=== PATIENT | female | born 1985 | race American Indian/Alaskan Native ===

== ENCOUNTER 2017-03-19 01:48 | Emergency (ER) | payer SELFPAY ==
[2017-03-19 02:55] VITALS: BP 110/74
[2017-03-19 03:23] LABS: Basophils % (Auto) 0.8 % (0.0-1.8); Eosinophils % (Auto) 4.6 % (0.0-4.3); Hematocrit 36.7 % (30.3-42.9); Hemoglobin 11.6 gm/dl (10.1-14.3); Mean Corpuscular HGB Conc 32 % (30-34); Mean Corpuscular Volume 71 fl (79-97); Platelet Count 278 K/mm3 (140-440); Red Blood Count 5.15 M/mm3 (3.65-5.03); Red Cell Distribution Width 14.2 % (13.2-15.2); White Blood Count 6.2 K/mm3 (4.5-11.0)
[2017-03-19 03:33] LABS: Mean Corpuscular Hemoglobin 23 pg (28-32)
[2017-03-19 03:40] LABS: Alanine Aminotransferase 21 units/L (7-56); Albumin 3.9 g/dL (3.9-5); Albumin/Globulin Ratio 1.3 %; Alkaline Phosphatase 66 units/L (35-129); Anion Gap 20 mmol/L; BUN/Creatinine Ratio 18.57; Blood Urea Nitrogen 13 mg/dL (7-17); Calcium 9.5 mg/dL (8.4-10.2); Carbon Dioxide 24 mmol/L (22-30); Chloride 102.1 mmol/L (98-107); Glucose 117 mg/dL (65-100); Lipase 36 units/L (13-60); Potassium 3.5 mmol/L (3.6-5.0); Sodium 143 mmol/L (137-145)
--- NOTE | 2017-03-19 04:47 | Emergency Department Report ---
Upper Respiratory HPI - HPI Chief Complaint: Upper Respiratory Infection Stated Complaint: STACEY/COUGH Time Seen by Provider: 03/19/17 03:51 URI Symptoms: Rhinorrhea: Yes, Sore Throat: Yes, Ear Pain: Yes, Cough: Yes, Shortness of Breath: Yes, Sick Contacts: No, Unable to Take Fluids: No, Urine Output Abnormal: No, Listless Behavior: No - Home Meds and Allergies Home Medications: Home Medications Medication Instructions Recorded Confirmed Last Taken Albuterol [Proventil] 2 mg PO TID PRN 01/09/14 01/09/14 Unknown Budesoni/Formotero 160-4.5(Nf) 2 puff IH BID 01/09/14 01/09/14 Unknown [Symbicort 160-4.5] Butalb/Acetamin/Caff 50-325-40 2 tab PO Q8H PRN 01/09/14 01/09/14 Unknown [Fioricet] Folic Acid 0.4 mg PO QDAY 01/09/14 01/09/14 Unknown Furosemide [Lasix] 40 mg PO DAILY 01/09/14 01/09/14 Unknown Norethindrone [Ortho Micronor] 0.35 mg PO DAILY 01/09/14 01/09/14 Unknown Potassium Chloride [Klor-Con 10] 10 meq PO DAILY 01/09/14 01/09/14 Unknown metFORMIN [Glucophage] 500 mg PO DAILY 01/09/14 01/09/14 Unknown Previous Rx's Medication Instructions Recorded Last Taken Type HYDROcodone/APAP 5-325 [[place] 1 - 2 each PO Q4-6H PRN #10 tablet 01/09/14 Unknown Rx 5/325 mg] ALBUTEROL Inhaler [ProAir HFA 2 puff IH QID PRN #1 inhalation 03/19/17 Unknown Rx Inhaler] Azithromycin [Zithromax Z-SAMI] 250 mg PO DAILY #6 tablet 03/19/17 Unknown Rx Ibuprofen [Motrin 800 MG tab] 800 mg PO Q8HR PRN #30 tablet 03/19/17 Unknown Rx P-Ephed HCl/Codeine/Guaifen 5 ml PO Q6HR PRN #240 ml 03/19/17 Unknown Rx [Cheratussin DAC Syrup] predniSONE [Deltasone] 40 mg PO DAILY #5 tablet 03/19/17 Unknown Rx Allergies/Adverse Reactions: Allergies Allergy/AdvReac Type Severity Reaction Status Date / Time Penicillins AdvReac Unknown Verified 01/09/14 12:31 ED Review of Systems ROS: Stated complaint: STACEY/COUGH Other details as noted in HPI Constitutional: fever. denies: diaphoresis, weakness Eyes: denies: eye pain, eye discharge, vision change ENT: ear pain, throat pain, congestion. denies: dental pain, hearing loss, epistaxis Respiratory: cough, shortness of breath, wheezing. denies: orthopnea Cardiovascular: denies: chest pain, palpitations, dyspnea on exertion, edema, syncope, paroxysmal nocturnal dyspnea Endocrine: no symptoms reported Gastrointestinal: denies: abdominal pain, nausea, diarrhea Genitourinary: denies: urgency, dysuria, discharge Skin: denies: rash, lesions Neurological: denies: headache, weakness, paresthesias Psychiatric: denies: anxiety, depression Hematological/Lymphatic: denies: easy bleeding, easy bruising ED Past Medical Hx - Past Medical History Previous Medical History?: Yes Hx Congestive Heart Failure: Yes Hx Headaches / Migraines: Yes Hx Asthma: Yes - Surgical History Past Surgical History?: Yes Additional Surgical History: Hernia Repair, 2002. , Hysteroscopy, D&C - Social History Smoking Status: Never Smoker Substance Use Type: None - Medications Home Medications: Home Medications Medication Instructions Recorded Confirmed Last Taken Type Albuterol [Proventil] 2 mg PO TID PRN 01/09/14 01/09/14 Unknown History Budesoni/Formotero 160-4.5(Nf) 2 puff IH BID 01/09/14 01/09/14 Unknown History [Symbicort 160-4.5] Butalb/Acetamin/Caff 50-325-40 2 tab PO Q8H PRN 01/09/14 01/09/14 Unknown History [Fioricet] Folic Acid 0.4 mg PO QDAY 01/09/14 01/09/14 Unknown History Furosemide [Lasix] 40 mg PO DAILY 01/09/14 01/09/14 Unknown History HYDROcodone/APAP 5-325 [[place] 1 - 2 each PO Q4-6H PRN #10 tablet 01/09/14 Unknown Rx 5/325 mg] Norethindrone [Ortho Micronor] 0.35 mg PO DAILY 04/08/14 04/08/14 Unknown History Potassium Chloride [Klor-Con 10] 10 meq PO DAILY 01/09/14 01/09/14 Unknown History metFORMIN [Glucophage] 500 mg PO DAILY 01/09/14 01/09/14 Unknown History ALBUTEROL Inhaler [ProAir HFA 2 puff IH QID PRN #1 inhalation 03/19/17 Unknown Rx Inhaler] Azithromycin [Zithromax Z-SAMI] 250 mg PO DAILY #6 tablet 03/19/17 Unknown Rx Ibuprofen [Motrin 800 MG tab] 800 mg PO Q8HR PRN #30 tablet 03/19/17 Unknown Rx P-Ephed HCl/Codeine/Guaifen 5 ml PO Q6HR PRN #240 ml 03/19/17 Unknown Rx [Cheratussin DAC Syrup] predniSONE [Deltasone] 40 mg PO DAILY #5 tablet 03/19/17 Unknown Rx ED Bronchiolitis Physical Exam - Exam General: Vital signs noted. No distress. Alert and acting appropriately. HEENT: Yes Pharyngeal Erythema, Yes Rhinorrhea, No Conjuctival Injection, No Dry Mucous Membranes Ear: Right TM Erythema, Neither TM Bulge, Neither EAC Discharge Neck: Yes Adenopathy, No Rigidity Lungs: Yes Good Air Exchange, Yes Wheezes, Yes Cough, No Clear Lung Sounds, No Stridor, No Nasal Flaring, No Retractions Heart: Yes Regular, No Murmur Abdomen: Yes Normal Bowel Sounds, No Tenderness, No Peritoneal Signs Skin: No Rash, No Eczema Neurologic: Alert and oriented, no deficits. Musculoskeletal: Unremarkable. Treatments - Treaments Treatment: Improved Albuterol ED Physical Exam - General Limitations: No Limitations General appearance: alert, in no apparent distress - Head Head exam: Present: atraumatic, normocephalic - Eye Eye exam: Present: normal appearance, PERRL, EOMI Pupils: Present: normal accommodation - ENT ENT exam: Present: mucous membranes moist, normal external ear exam - Expanded ENT Exam Expanded TM/Canal exam: Erythema: Right TM, Left TM, Loss of Landmarks: Right TM, Foreign Body: Left TM, Cerumen Impaction: Left TM, Mastoid Tenderness: Left TM, Canal Discharge: Left TM, Right TM, Canal Tenderness: Right TM Mouth exam: Present: normal external inspection, tongue normal. Absent: trismus , muffled voice Teeth exam: Absent: normal inspection Throat exam: Positive: tonsillar erythema, tonsillomegaly. Negative: tonsillar exudate, R peritonsillar mass, L peritonsillar mass - Neck Neck exam: Present: normal inspection, full ROM, lymphadenopathy. Absent: tenderness, meningismus, thyromegaly - Respiratory Respiratory exam: Present: wheezes, chest wall tenderness. Absent: respiratory distress, rales, rhonchi, stridor, accessory muscle use, decreased breath sounds , prolonged expiratory - Cardiovascular Cardiovascular Exam: Present: regular rate, normal rhythm. Absent: systolic murmur, diastolic murmur, rubs, gallop - GI/Abdominal GI/Abdominal exam: Present: soft, normal bowel sounds. Absent: tenderness, guarding, rebound, rigid, bruit - Rectal Rectal exam: Present: deferred - Extremities Exam Extremities exam: Present: normal inspection - Back Exam Back exam: Present: normal inspection - Neurological Exam Neurological exam: Present: alert, oriented X3 - Psychiatric Psychiatric exam: Present: normal affect, normal mood - Skin Skin exam: Present: warm, dry, intact, normal color. Absent: rash ED Course Vital Signs 03/19/17 02:20 Temperature 98.4 F Pulse Rate 101 H Respiratory 20 Rate Blood Pressure 110/74 [Right] O2 Sat by Pulse 100 Oximetry ED Medical Decision Making - Lab Data Result diagrams: 03/19/17 03:04 03/19/17 03:04 - EKG Data -: EKG Interpreted by Me (Attending physician) EKG shows normal: sinus rhythm Rate: normal - Radiology Data Radiology results: image reviewed no opacities no infiltrates - Medical Decision Making pt is 32 y/o aaf with hx of asthma and bronchitis who presents for acute exacerbation of same pt endorse cough productive green noc wheezing and fever , intermittent sob, pt denies smoking exam pt rec'd a/o x 3 with nad no use of accessory muscles, lungs with mild exp wheezing and diminished bases bilat , pt lungs sound improved with neb tx given in ED , CV: S1 and S2, repeat V/S HR: CXR: no infiltrate no opacities, EKG: plan: prednisone, Albuterol inhaler, Zpack, ibuprofen ,and Cheratussin pt is currently a/o x 3 ambulatory in length of fast track without increased sob , pt verbalized understanding and agreement with discharge plan. N. [place] Heart Score: 2 , hr now 79, bp:147/82 , resp 16 Critical care attestation.: If time is entered above; I have spent that time in minutes in the direct care of this critically ill patient, excluding procedure time. ED Disposition Clinical Impression: Bronchitis, Asthma Disposition: DC- TO HOME OR SELFCARE Is pt being admited?: No Does the pt Need Aspirin: No Condition: Good Instructions: Chronic Bronchitis (ED), Asthma (ED) Prescriptions: ALBUTEROL Inhaler [ProAir HFA Inhaler] 2 puff IH QID PRN #1 inhalation PRN Reason: Shortness Of Breath Azithromycin [Zithromax Z-SAMI] 250 mg PO DAILY #6 tablet Ibuprofen [Motrin 800 MG tab] 800 mg PO Q8HR PRN #30 tablet PRN Reason: Pain P-Ephed HCl/Codeine/Guaifen [Cheratussin DAC Syrup] 5 ml PO Q6HR PRN #240 ml PRN Reason: Cough predniSONE [Deltasone] 40 mg PO DAILY #5 tablet Referrals: PRIMARY CARE, [Primary Care Provider] - 3-5 Days Forms: Work/School Release Form(ED) Time of Disposition: 05:29
--- NOTE | 2017-03-19 07:19 | XRay Report ---
ROUTINE CHEST, TWO VIEWS: HISTORY: Cough. The trachea, heart, mediastinal contour, lung calvin and bony thorax are unremarkable. IMPRESSION: Unremarkable chest x-ray.
== END 2017-03-19 05:38 | disposition home or self-care (01) ==
LOC: ED 01:48
DX: J45.909 Unspecified asthma, uncomplicated (principal); I50.9 Heart failure, unspecified; G43.909 Migraine, unspecified, not intractable, without status migrainosus; Z88.0 Allergy status to penicillin
CPT/HCPCS: 36415; 71020; 80053; 83690; 84484; 84703; 85025; 93005; 93010; 99284

== ENCOUNTER 2017-07-30 09:07 | Outpatient (CLI) | payer BC ==
--- NOTE | 2017-07-30 13:41 | Fluoroscopy Report ---
FLUORO GUIDED HSG INDICATION: Infertility. COMPARISON: None similar. FINDINGS: Hysterosalpingogram performed with cervix cannulated using standard sterile precautions. Preliminary radiograph demonstrates no significant abnormality. Injection of 12 cc of Omnipaque-300 under fluoroscopy demonstrates normal uterine cavity/contours. Prompt opacification of normal caliber fallopian tubes with free intraperitoneal spill noted bilaterally. CONCLUSION: Normal exam with patent bilateral fallopian tubes, as described. Thank you for the opportunity to participate in this patient's care.
== END 2017-07-30 09:08 | disposition home or self-care (01) ==
LOC: FLUORO 09:07
PROVIDERS: ATTEND Obstetrics & Gynecology
DX: N97.9 Female infertility, unspecified (principal)
CPT/HCPCS: 36415; 58340; 74740; 84702; Q9967

== ENCOUNTER 2021-11-19 06:12 | Outpatient (CLI) | payer BC ==
[2021-11-19 08:56] LABS: Alanine Aminotransferase 19 units/L (7-56); BUN/Creatinine Ratio 12; Blood Urea Nitrogen 11 mg/dL (7-17); Calcium 9.1 mg/dL (8.4-10.2); Chol/HDL Ratio 3.78 %; HDL Cholesterol 52 mg/dL (40-59); Hemolysis Index 7; LDL Cholesterol,Direct 124 mg/dL (50-130)
[2021-11-19 09:15] LABS: Hematocrit 39.6 % (30.3-42.9); Hemoglobin 12.2 gm/dl (10.1-14.3); Mean Corpuscular HGB Conc 31 % (30-34); Mean Corpuscular Volume 73 fl (79-97); Platelet Count 311 K/mm3 (140-440); Red Blood Count 5.46 M/mm3 (3.65-5.03); Red Cell Distribution Width 14.6 % (13.2-15.2)
== END 2021-11-19 06:13 | disposition home or self-care (01) ==
LOC: LAB 06:12
PROVIDERS: ATTEND Internal Medicine
DX: Z00.00 Encounter for general adult medical examination without abnormal findings (principal); E11.65 Type 2 diabetes mellitus with hyperglycemia; R53.83 Other fatigue; E78.2 Mixed hyperlipidemia; E55.9 Vitamin D deficiency, unspecified; I10 Essential (primary) hypertension
CPT/HCPCS: 36415; 80053; 80061; 82306; 83036; 84443; 85027

== ENCOUNTER 2022-01-07 07:37 | Outpatient (CLI) | payer BC ==
--- NOTE | 2022-01-07 10:19 | Fluoroscopy Report ---
Barium swallow Indication: K30 FUNCTIONAL DYSPEPSIA. Technique: Single and double contrast barium technique utilized to evaluate the esophagus. Findings: No mucosal irregularity, mass, mass effect, or critical stenosis. There were no abnormal tertiary c ontractions as seen with dysmotility. No gastroesophageal reflux. There was a tiny hiatal hernia. Impression: Tiny hiatal hernia. Otherwise unremarkable exam. Fluoroscopic time: 2.5 minutes Number of fluoroscopic images: 12 Signer Name: Rafat Vargas MD Signed: 01/07/2022 10:15 AM Workstation Name: [id number]
--- NOTE | 2022-01-08 10:34 | Treadmill Report ---
[facility] Test Date: 2022-01-07 Test Time: 10:06:00 Pat Name: CRISS SKINNER Department: Room: Gender: F Gold Nib Grinder: Marychuy Rubi : 1985 Requested By: TRINA JARAMILLO Order Number: [id number] Reading MD: Jarrod Dixon Interpretive Statements Baseline EKG showed sinus rhythm, within normal limits. Exercised for 7 minutes, achieved 98% of predicted maximal heart rate of 179 bpm. Test was stopped due to fatigue, no EKG changes to suggest ischemia. No arrhythmia noted. Appropriate blood pressure response was noted. Impression: Fair exercise tolerance. Negative for angina, negative for ischemia and EKG. Appropriate blood pressure response with exercise. No arrhythmia noted. Overall this is a low risk study. Electronically Signed On 01-08-2022 10:34:02 EDT by Jarrod Dixon
== END 2022-01-07 07:38 | disposition home or self-care (01) ==
LOC: CARD 07:37
PROVIDERS: ATTEND Surgery
DX: K44.9 Diaphragmatic hernia without obstruction or gangrene (principal); E66.01 Morbid (severe) obesity due to excess calories; K30 Functional dyspepsia
CPT/HCPCS: 74220; 93017

== ENCOUNTER 2022-03-24 07:24 | Day surgery (SDC) | payer BC ==
[~2022-03-24 07:24] MED LIST: SODIUM CHLORIDE 0.9% 1000 ML 1,000 ML IV SCH
--- NOTE | 2022-03-24 08:01 | Anesthesia Day of Surgery ---
Anesthesia Day of Surgery - Day of Surgery Patient Examined: Yes Patient H&P Reviewed: Yes Patient is NPO: Yes
--- NOTE | 2022-03-24 08:01 | Anesthesia Consultation ---
Anesthesia Consult and Med Hx Date of service: 03/24/22 - Airway Anesthetic Teeth Evaluation: Good ROM Head & Neck: Adequate Mental/Hyoid Distance: Adequate Mallampati Class: Class I Intubation Access Assessment: Probably Good - Pre-Operative Health Status ASA Pre-Surgery Classification: ASA4 Proposed Anesthetic Plan: MAC - Pulmonary Hx Smoking: No Hx Asthma: Yes (uses inhaler frequently r/t allergies) Hx Respiratory Symptoms: Yes (Cough/allergies) Hx Sleep Apnea: Yes (+CPAP) - Cardiovascular System Hx Hypertension: No Hx Heart Attack/AMI: No Hx Peripheral Vascular Disease: No (Pitting edema in BLE, states it has been there since age 17) - Central Nervous System Hx Seizures: No CVA: No Hx Psychiatric Problems: Yes (depression) - Gastrointestinal Hx Gastroesophageal Reflux Disease: Yes (controlled with medication) - Endocrine Hx Renal Disease: No Hx Liver Disease: No Hx Non-Insulin Dependent Diabetes: Yes Hx Thyroid Disease: No - Hematic Hx Anemia: No Hx Sickle Cell Disease: No - Other Systems Hx Alcohol Use: No Hx Substance Use: No Hx Cancer: No Hx Obesity: Yes (BMI 52) - Additional Comments Anesthesia Medical History Comments: no hx of anesthesia complications
--- NOTE | 2022-03-24 08:51 | Discharge Summary ---
Providers - Providers Date of Admission: 03/24/2022 Date of discharge: 03/24/22 Attending physician: TRINA JARAMILLO MD Primary care physician: CHENCHO KATHLEEN Hospitalization Reason for admission: pre-op egd Condition: Good Procedures: egd with bx Hospital course: Pt presented for a pre-op EGD as part of planning for up coming bariatric surgery. Procedure was uneventful and pt recovered well and was discharged to home. Disposition: 01 HOME / SELF CARE / HOMELESS Final Discharge Diagnosis (Prints w/discharge instructions): gerd, morbid obesity Core Measure Documentation - Palliative Care Palliative Care/ Comfort Measures: Not Applicable - Core Measures Any of the following diagnoses?: none Exam - Physical Exam Narrative exam: unchanged from pre-op Plan Activity: advance as tolerated Diet: low carbohydrate Follow up with: CHENCHO KATHLEEN MD [Primary Care Provider] - 7 Days
--- NOTE | 2022-03-24 08:52 | Operative Report ---
Operative Report Operative Report: DATE: 03/24/2022 SURGERY: Upper endoscopy. SURGEON: Ludmila Hogan M.D. PROCEDURE: EGD with biopsy PRE OP DX: morbid obesity, GERD POST OP DX: morbid obesity, GERD TYPE OF ANESTHESIA: MAC. ESTIMATED BLOOD LOSS: None. COMPLICATIONS: None. SPECIMENS REMOVED: antral biopsy FINDINGS: 1. moderate hiatal hernia. 2. Otherwise, normal esophagus, stomach and first portion of duodenum. INDICATIONS:INDICATION FOR PROCEDURE: Patient is a 37-year-old female with a long history of morbid obesity. She is planned to have a weight loss procedure and is here for preoperative planning EGD. PROCEDURE DETAILS: After consent was reviewed, patient was taken back to the operating room where patient was placed in the left lateral decubitus position and a bite block was placed in the mouth. After a time-out was called, MAC anesthesia was initiated. I then passed the endoscope into her oropharynx, into her esophagus, visualized the entire esophagus, which was all within normal limits. Z-line was noted to about 38cm from incisors. I then visualized the stomach and the first portion of the duodenum and there were no abnormalities I could clearly visualize except for antral gastritis. A cold forceps biopsy of the antrum was taken and will be sent to pathology to evaluate for H.pylori. I then retroflexed the scope in the stomach and visualized the hiatus and I could see a moderate hiatal hernia. I then desufflated the stomach and removed the endoscope. Patient tolerated procedure well and was transferred to recovery room in good and stable condition.
[2022-03-24] MEDS ORDERED: GLYCOPYRROLATE 0.4 MG/2 ML INJ ONE (09:39)
[2022-03-24] MEDS ORDERED: propofoL 200 MG/20 ML VIAL IV ONE (09:39)
[2022-03-24] MEDS ORDERED: LIDOCAINE MPF (2%) 20 MG/1 ML VIAL 5 ML ONE (09:39)
[2022-03-24] MEDS ORDERED: MIDAZOLAM 2 MG/2 ML INJ ONE (09:41)
[2022-03-24 16:04] VITALS: BP 101/60
== END 2022-03-24 10:25 | disposition home or self-care (01) ==
LOC: GIO 07:24
PROVIDERS: ATTEND Surgery
DX: K21.9 Gastro-esophageal reflux disease without esophagitis (principal); E66.01 Morbid (severe) obesity due to excess calories; K44.9 Diaphragmatic hernia without obstruction or gangrene; K29.70 Gastritis, unspecified, without bleeding; E11.9 Type 2 diabetes mellitus without complications; J45.909 Unspecified asthma, uncomplicated; I11.0 Hypertensive heart disease with heart failure; I50.9 Heart failure, unspecified; G47.33 Obstructive sleep apnea (adult) (pediatric); F32.9 Major depressive disorder, single episode, unspecified; Z91.041 Radiographic dye allergy status; Z91.013 Allergy to seafood; Z88.0 Allergy status to penicillin; Z79.899 Other long term (current) drug therapy; Z79.84 Long term (current) use of oral hypoglycemic drugs; Z68.43 Body mass index [BMI] 50.0-59.9, adult
CPT/HCPCS: 43239; 81025; 82962; 88305; 88342; J1815; J2250; J2704; J7030